=== PATIENT | female | born 1990 | race Caucasian/White ===

== ENCOUNTER 2021-05-12 04:55 | Emergency (ER) | payer OTHER ==
[~2021-05-12] VITALS: Ht 157.5 cm; Wt 90.7 kg
[2021-05-12 05:13] LABS: URINE BILIRUBIN NEGATIVE (Negative); URINE BLOOD 3+ (Negative); URINE CLARITY CLEAR; URINE COLOR YELLOW; URINE GLUCOSE-RANDOM NEGATIVE (Negative); URINE KETONES NEGATIVE (Negative); URINE LEUKOCYTES-REFLEX NEGATIVE (Negative); URINE NITRITE-REFLEX NEGATIVE (Negative); URINE PROTEIN 1+ (Negative); URINE SPECIFIC GRAVITY >= 1.030 (1.005-1.030); URINE UROBILINOGEN 0.2 E.U./dl (0.2-1.0)
[2021-05-12 05:29] LABS: CASTS None Seen /LPF (None Seen); CRYSTALS None Seen /LPF (None Seen); MUCUS 4-6 Moderate strn/LPF (None Seen); SQUAMOUS 4-10 Moderate /LPF (0-3); URINE WBC-REFLEX 0-5 Rare /HPF (0-5)
[2021-05-12 05:56] LABS: HEMATOCRIT 41.9 % (37.0-47.0); HEMOGLOBIN 14.4 gm/dL (12.0-15.0); MCHC 34.4 g/dL (28.0-37.0); MCV 90.1 fL (80.0-100.0); MPV 8.8 fl. (7.2-11.1); RBC 4.65 mil/uL (4.20-5.00); RDW-CV 13.5 % (10.5-14.5); WBC 9.9 thou/uL (4.0-11.0)
[2021-05-12 06:11] LABS: CALCIUM 8.7 mg/dL (8.5-10.1); POTASSIUM 4.8 mmol/L (3.5-5.1)
[2021-05-12] MEDS ORDERED: FLOMAX0.4 MG PO (07:58)
[2021-05-12] MEDS ORDERED: PERCOCET PO (07:58)
[2021-05-12] MEDS ORDERED: CIPROFLOXACIN500 M1 PO (07:58)
[2021-05-12 08:11] VITALS: BP 140/90
== END 2021-05-12 08:12 | disposition home or self-care (01) ==
LOC: M.ERS 04:55
PROVIDERS: Personal Emergency Response Attendant
DX: N23 Unspecified renal colic (principal); R10.9 Unspecified abdominal pain; N20.0 Calculus of kidney; Z90.89 Acquired absence of other organs; Z88.5 Allergy status to narcotic agent